=== PATIENT | female | born 1940 | race Caucasian/White ===

== ENCOUNTER 2016-02-24 15:25 | Inpatient (IN) | payer OTHER, MEDICAID, MEDICARE ==
--- NOTE | 2016-02-24 17:37 | ED Physician Chart ---
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 The episode was accompanied by associated substernal chest pain that radiated into the left arm. This episode occurred approximately one hour prior to admission and the chest pain is still present. The patient has had no similar episodes in the past. She rates the severity of the chest pain as a 6/10 and describes the character of the chest pain as a dull ache or pressure. She denies any relieving or exacerbating factors. The pain is also present in the LUE. There is no radiation to the jaw or back. The patient denies any associated respiratory distress, nausea, vomiting, cough, or diaphoresis. Patient has a prior history of hypertension and anxiety. The episode was accompanied by acute anxiety. Allergies:: Allergies Allergy/AdvReac Type Severity Reaction Status Date / Time No Known Allergies Allergy Verified 02/24/16 16:03 Vitals:: Vital Signs - 8 hr 02/24/16 16:05 Temp 97.9 F HR 72 RR 22 BP 164/83 O2 Sat % 98 Review of Systems - Review of Systems General/Constitutional: No fever, No chills, No diaphoresis, No edema, No loss of appetite Skin: No skin lesions, No rash Head: No headache, Light headed Eyes: No loss of vision, No diplopia ENT: No earache, No nasal drainage, No sore throat, No tinnitus Neck: No neck pain, No swelling, No stiffness, No mass noted Cardio Vascular: Chest pain, No palpitations, No PND, No edema Pulmonary: No SOB, No cough, No sputum, No wheezing, Other ( No hemoptysis.) GI: No nausea, No vomiting, No diarrhea, No pain, No hematemesis G/U: No dysuria, No frequency, No hematuria Corporate Communications Manager: No abnormal vaginal bleed Musculoskeletal: No back pain Psychiatric: Prior psych history, Anxiety, No suicidal ideation Hematopoietic: No bruising, No lymphadenopathy Neurological: No focal symptoms, No paresthesia, No headache, Dizziness, Vertigo , Other ( The patient describes being lightheaded and feeling like she may faint.) Past Medical History - Past Medical History Past Medical History: HTN, Other ( No history of heart disease, diabetes or elevated cholesterol. No history of prior DVT or pulmonary embolism.) Social History: Non Smoker, No Alcohol, Single Surgical History: None Psychiatricy History: Other ( Anxiety issues.) Family Medical History - Family Member Mother History Unknown: Yes Physical Exam - Physical Examination General/Constitutional: Awake ( in what way I should've told it was around the corner and I jars and you), Well-developed, well-nourished, Alert, GCS 15, Non- toxic appearing Other Gen/Cons comments:: Minimal distress secondary to complained of chest pain. Head: Atraumatic Eyes: Lids, conjuctiva normal, PERRL, EOMI Other Eyes comments:: No nystagmus present. Skin: No rash, No skin lesions, No ecchymosis, No lymphadenopathy ENMT: External ears, nose nl, Lips, teeth, gums nl, Oropharynx nl, Tonsils nl Neck: Nontender, No JVD, No nuchal rigidity, No bruit, No stridor Respiratory: Nl effort/Exclusion, Clear to Auscultation, No Wheeze/Rhonchi/Rales Cardio Vascular: RRR, No murmur, gallop, rubs, NL S1 S2 Other Cardio Vascular comments:: Patient has adequate pulses in all four extremities. GI: No tenderness/rebounding/guarding, No organomegaly, No hernia, Normal BS's, Nondistended, No mass/bruits, No McBurney tenderness Other GI comments:: Rectal examination was deferred at my discretion. : No CVA tenderness Extremities: No tenderness or effusion, Full ROM, normal strength in all extremities, No edema Other Extremities comments:: No calf tenderness and Lin's sign is negative. Neuro/Psych: Alert/oriented, Judgement/insight normal, No focal deficits Other Neuro/Psych comments:: Sensory examination was intact to light touch. The patient has normal strength in all four extremities consistent with her age and sex. The patient is able to ambulate with minimal assistance. Gait unremarkable. Normal finger-nose exam. Normal heal-alcaraz exam. Normal alternating hand movements. Labs/Radiology/EKG Results - Lab Results Results: Laboratory Tests 02/24/16 02/24/16 02/24/16 18:00 18:00 18:00 WBC 8.8 RBC 4.25 Hgb 14.3 Hct 42.0 MCV 98.7 MCH 33.5 H MCHC Differential 33.9 RDW 13.1 Plt Count 211 MPV 9.2 Neutrophils % 68.1 Lymphocytes % 23.3 Monocytes % 6.7 Eosinophils % 1.5 Basophils % 0.4 Sodium 138 Potassium 4.0 Chloride 109 H Carbon Dioxide 21.5 Anion Gap 11.5 BUN 23 Creatinine 0.8 Est GFR ( Amer) TNP Est GFR (Non-Af Amer) TNP BUN/Creatinine Ratio 28.8 Glucose 95 Calcium 9.4 Troponin I < 0.01 L B-Natriuretic Peptide Triglycerides Cholesterol LDL Cholesterol Direct HDL Cholesterol TSH 02/25/16 02/25/16 02/25/16 16:03 16:03 16:03 WBC RBC Hgb Hct MCV MCH MCHC Differential RDW Plt Count MPV Neutrophils % Lymphocytes % Monocytes % Eosinophils % Basophils % Sodium 140 Potassium 4.0 Chloride 109 H Carbon Dioxide 25.4 Anion Gap 9.6 BUN 24 Creatinine 1.2 Est GFR ( Amer) TNP Est GFR (Non-Af Amer) TNP BUN/Creatinine Ratio 20.0 Glucose 97 Calcium 9.3 Troponin I < 0.01 L B-Natriuretic Peptide 26.0 Triglycerides 204 H Cholesterol 155 LDL Cholesterol Direct 103 HDL Cholesterol 27 TSH 1.61 02/25/16 02/26/16 23:44 07:45 WBC RBC Hgb Hct MCV MCH MCHC Differential RDW Plt Count MPV Neutrophils % Lymphocytes % Monocytes % Eosinophils % Basophils % Sodium Potassium Chloride Carbon Dioxide Anion Gap BUN Creatinine Est GFR ( Amer) Est GFR (Non-Af Amer) BUN/Creatinine Ratio Glucose Calcium Troponin I < 0.01 L < 0.01 L B-Natriuretic Peptide Triglycerides Cholesterol LDL Cholesterol Direct HDL Cholesterol TSH Laboratory impression: the CBCs shows no evidence of leukocytosis or anemia. The troponin was within the normal range. Electrolytes were within the normal range except for a chloride of 109. Single view chest x-ray: no cardiomegaly. No mediastinal widening. No pneumothorax. No areas of pulmonary consolidation or infiltrate. Impression: no acute cardiopulmonary findings. - EKG Interpretations EKG Time:: 16:01 Rhythm: NSR RATE OF 65. Whittaker: Whittaker is normal Rate: 65 Comments:: No cue waves. No ST segment elevation or depression. Normal T waves. Normal NC interval. Normal QRS duration. Normal QT interval. Impression: no acute ischemic findings. Assessment - Assessment General Assessment: CASE SUMMARY: the 75-year-old female was brought in by EMS following an episode of dizziness accompanied by substernal chest pain. She rates the pain is a 6/10 severity and it radiates to the left upper extremity. The quality of the pain is a dull ache and she also uses the term pressure. She describes the dizziness as both mild vertigo and a feeling like she might faint. On physical examination the cardiopulmonary examination was unremarkable. There were no focal neurologiits. Chest x-ray was negative for any acute cardiopulmonary findings. The patient's electrocardiogram was normal with no ischemic findings. The patient symptoms were addressed was sublingual nitroglycerin which resulted in resolution of the chest pain. She was also treated with PO aspirin. The case was discussed with the panel physician and the patient will be admitted to a telemetry bed for further evaluation of possible ACS. MDM DDX FOR ACUTE CHEST PAIN AND NEAR SYNCOPE: NOT Aortic dissection based on the patient's history, examination and chest x-ray findings. NOT Pneumothorax based on a negative chest x-ray. NOT Pneumonia based on negative chest x-ray. LOW RISK for Pulmonary embolism based on Well's score of zero. CRITICAL CARE 45 MINUTES EXCLUDING ANY PROCEDURES. Treatment of Acute Chest pain with po aspirin and sublingual nitroglycerine. Resolution of pain. ED Septic Shock - . Is Septic Shock (SBP<90, OR Lactate>4 mmol\L) present?: No - <6hrs of presentation: Vital Signs: Vital Signs - 8 hr 02/24/16 16:05 Temp 97.9 F HR 72 RR 22 BP 164/83 O2 Sat % 98 Reassessment (Disposition) - Reassessment Reassessment Condition:: Improved - Diagnosis Diagnosis:: ACUTE CHEST PAIN (Rule out ACS), HYPERTENSION, ANXIETY - Aftercare/Follow up Instructions Aftercare/Follow-Up Instructions:: Counseled pt regarding lab results/diagnosis & need follow up - Patient Disposition Discharge/Transfer:: Acute Care w/in this hosp Accepting Physician:: DR. DICKENS ED Discharge Plan - Patient Disposition Admit/Discharge/Transfer: Acute Care w/in this hosp Condition at Disposition: Stable
[2016-02-24] MEDS ORDERED: Aspirin 81mg Chewable Tab PO ONE (17:42)
[2016-02-24] MEDS ORDERED: Aspirin 81mg Chewable Tab ONE (17:45)
[2016-02-24 18:22] LABS: % BASOPHILS 0.4 % (0.0-2.0); % EOSINOPHILS 1.5 % (0.0-5.0); % LYMPHOCYTES 23.3 % (20.0-50.0); % MONOCYTES 6.7 % (2.0-10.0); % NEUTROPHILS 68.1 % (40.0-80.0); HEMOGLOBIN 14.3 gm/dL (11.7-16.1); MEAN CELL VOLUME 98.7 fl (81-100); MEAN CORPUSCULAR HEMOGLOBIN 33.5 pg (27.0-31.0); MEAN CORPUSCULAR HGB CONC 33.9 pg (28.0-36.0); MEAN PLATELET VOLUME 9.2 fl; PLATELET COUNT 211 Th/cmm (150-400); RED BLOOD COUNT 4.25 Mil/cmm (3.80-5.20); RED CELL DISTRIBUTION WIDTH 13.1 % (11.5-20.0); WHITE BLOOD COUNT 8.8 Th/cmm (4.8-10.8)
[2016-02-24 19:19] LABS: ANION GAP 11.5 (7.0-16.0); BUN - UREA NITROGEN 23 mg/dL (7-25); BUN/CREATININE RATIO 28.8; CALCIUM SERUM 9.4 mg/dL (8.6-10.3); CARBON DIOXIDE 21.5 mEq/L (21.0-31.0); CHLORIDE 109 mEq/L (98-107); CREATININE - SERUM 0.8 mg/dL (0.6-1.2); GLUCOSE 95 mg/dL (70-105); SODIUM SERUM 138 mEq/L (136-145)
--- NOTE | 2016-02-25 10:22 | Diagnostic Imaging Report ---
CHEST X-RAY: AP view INDICATION: Chest pain and dizziness COMPARISON: None FINDINGS: Chronic lung changes are seen focal consolidation or pleural effusions. Heart size is normal. Tortuous aorta is noted. Degenerative changes of the spine are noted. IMPRESSION: Chronic lung changes with no focal consolidation identified. Tortuous aorta.
[2016-02-25 16:32] LABS: ANION GAP 9.6 (7.0-16.0); BUN - UREA NITROGEN 24 mg/dL (7-25); CALCIUM SERUM 9.3 mg/dL (8.6-10.3); CARBON DIOXIDE 25.4 mEq/L (21.0-31.0); CHLORIDE 109 mEq/L (98-107); CHOLESTEROL 155 mg/dL (<200); CREATININE - SERUM 1.2 mg/dL (0.6-1.2); GLUCOSE 97 mg/dL (70-105); SODIUM SERUM 140 mEq/L (136-145); TRIGLYCERIDES 204 mg/dL (<150)
[2016-02-25] MEDS: Aspirin 81mg Chewable Tab PO SCH (17:57)
--- NOTE | 2016-02-25 18:19 | History & Physical ---
HISTORY OF PRESENT ILLNESS: This is a 75-year-old female patient. The patient is complaining of dizziness and also complaining of chest discomfort, vertigo radiating to the left bottom, left bottom heaviness, and the patient was worked up and was admitted for rule out acute coronary syndrome, and the patient had no nausea, no vomiting, no diarrhea, and no other problem. PAST MEDICAL HISTORY: Unremarkable. History of hypertension. PHYSICAL EXAMINATION: GENERAL: Alert and oriented female. VITAL SIGNS: Stable. HEAD: Normal. ENT: Normal. NECK: Supple, nontender. LUNGS: Clear. CARDIOVASCULAR SYSTEM: S1, S2 heard. ABDOMEN: Soft. Bowel sounds are heard. CENTRAL NERVOUS SYSTEM: Grossly normal. DIAGNOSES: Acute chest pain, rule out acute coronary syndrome, and history of hypertension. The patient is being admitted. I will have cardiac workup done. I will have Dr. Camacho see the patient. I will follow the patient along with him. JOB# [id number]
[2016-02-26] MEDS: Aspirin 81mg Chewable Tab PO SCH (08:56)
--- NOTE | 2016-02-26 09:04 | General Progress Note ---
Objective - Results Result Diagrams: 02/24/16 18:00 02/25/16 16:03 Recent Labs: Laboratory Last Values WBC 8.8 Th/cmm (4.8-10.8) 02/24/16 18:00 RBC 4.25 Mil/cmm (3.80-5.20) 02/24/16 18:00 Hgb 14.3 gm/dL (11.7-16.1) 02/24/16 18:00 Hct 42.0 % (35.0-45.0) 02/24/16 18:00 MCV 98.7 fl (81-100) 02/24/16 18:00 MCH 33.5 pg (27.0-31.0) H 02/24/16 18:00 MCHC Differential 33.9 pg (28.0-36.0) 02/24/16 18:00 RDW 13.1 % (11.5-20.0) 02/24/16 18:00 Plt Count 211 Th/cmm (150-400) 02/24/16 18:00 MPV 9.2 fl 02/24/16 18:00 Neutrophils % 68.1 % (40.0-80.0) 02/24/16 18:00 Lymphocytes % 23.3 % (20.0-50.0) 02/24/16 18:00 Monocytes % 6.7 % (2.0-10.0) 02/24/16 18:00 Eosinophils % 1.5 % (0.0-5.0) 02/24/16 18:00 Basophils % 0.4 % (0.0-2.0) 02/24/16 18:00 Sodium 140 mEq/L (136-145) 02/25/16 16:03 Potassium 4.0 mEq/L (3.5-5.1) 02/25/16 16:03 Chloride 109 mEq/L (98-107) H 02/25/16 16:03 Carbon Dioxide 25.4 mEq/L (21.0-31.0) 02/25/16 16:03 Anion Gap 9.6 (7.0-16.0) 02/25/16 16:03 BUN 24 mg/dL (7-25) 02/25/16 16:03 Creatinine 1.2 mg/dL (0.6-1.2) 02/25/16 16:03 Est GFR ( Amer) TNP 02/25/16 16:03 Est GFR (Non-Af Amer) TNP 02/25/16 16:03 BUN/Creatinine Ratio 20.0 02/25/16 16:03 Glucose 97 mg/dL (70-105) 02/25/16 16:03 Calcium 9.3 mg/dL (8.6-10.3) 02/25/16 16:03 Troponin I < 0.01 ng/mL (0.01-0.05) L 02/26/16 07:45 B-Natriuretic Peptide 26.0 pg/mL (5.0-100.0) 02/25/16 16:03 Triglycerides 204 mg/dL (<150) H 02/25/16 16:03 Cholesterol 155 mg/dL (<200) 02/25/16 16:03 LDL Cholesterol Direct 103 mg/dL (75-193) 02/25/16 16:03 HDL Cholesterol 27 mg/dL (23-92) 02/25/16 16:03 TSH 1.61 uIU/ml (0.34-5.60) 02/25/16 16:03 - Physical Exam Vitals and I&O: Vital Signs Temp 97.2 F 02/26/16 04:00 Pulse 57 02/26/16 04:00 Resp 19 02/26/16 04:00 BP 103/58 02/26/16 04:00 Pulse Ox 95 02/26/16 04:00 Intake & Output 02/25/16 02/26/16 02/26/16 18:59 06:59 18:59 Intake Total 900 120 Balance 900 120 Intake: Oral 900 120 Other: # Voids 3 2 Active Medications: Current Medications Aspirin (Aspirin Chewable) 162 mg PO DAILY DEBBIE Stop: 04/25/16 15:41 Last Admin: 02/26/16 08:56 Dose: 162 mg Assessment/Plan - Problem List Patient Problems: All Active Problems DIZZINESS AND LEFT ARM HEAVINESS (Acute)
--- NOTE | 2016-02-26 15:14 | General Progress Note ---
Subjective - Review of Systems Service Date: 02/26/16 Subjective: awake, alert, nad Objective - Results Result Diagrams: 02/24/16 18:00 02/25/16 16:03 Recent Labs: Laboratory Last Values WBC 8.8 Th/cmm (4.8-10.8) 02/24/16 18:00 RBC 4.25 Mil/cmm (3.80-5.20) 02/24/16 18:00 Hgb 14.3 gm/dL (11.7-16.1) 02/24/16 18:00 Hct 42.0 % (35.0-45.0) 02/24/16 18:00 MCV 98.7 fl (81-100) 02/24/16 18:00 MCH 33.5 pg (27.0-31.0) H 02/24/16 18:00 MCHC Differential 33.9 pg (28.0-36.0) 02/24/16 18:00 RDW 13.1 % (11.5-20.0) 02/24/16 18:00 Plt Count 211 Th/cmm (150-400) 02/24/16 18:00 MPV 9.2 fl 02/24/16 18:00 Neutrophils % 68.1 % (40.0-80.0) 02/24/16 18:00 Lymphocytes % 23.3 % (20.0-50.0) 02/24/16 18:00 Monocytes % 6.7 % (2.0-10.0) 02/24/16 18:00 Eosinophils % 1.5 % (0.0-5.0) 02/24/16 18:00 Basophils % 0.4 % (0.0-2.0) 02/24/16 18:00 Sodium 140 mEq/L (136-145) 02/25/16 16:03 Potassium 4.0 mEq/L (3.5-5.1) 02/25/16 16:03 Chloride 109 mEq/L (98-107) H 02/25/16 16:03 Carbon Dioxide 25.4 mEq/L (21.0-31.0) 02/25/16 16:03 Anion Gap 9.6 (7.0-16.0) 02/25/16 16:03 BUN 24 mg/dL (7-25) 02/25/16 16:03 Creatinine 1.2 mg/dL (0.6-1.2) 02/25/16 16:03 Est GFR ( Amer) TNP 02/25/16 16:03 Est GFR (Non-Af Amer) TNP 02/25/16 16:03 BUN/Creatinine Ratio 20.0 02/25/16 16:03 Glucose 97 mg/dL (70-105) 02/25/16 16:03 Calcium 9.3 mg/dL (8.6-10.3) 02/25/16 16:03 Troponin I < 0.01 ng/mL (0.01-0.05) L 02/26/16 07:45 B-Natriuretic Peptide 26.0 pg/mL (5.0-100.0) 02/25/16 16:03 Triglycerides 204 mg/dL (<150) H 02/25/16 16:03 Cholesterol 155 mg/dL (<200) 02/25/16 16:03 LDL Cholesterol Direct 103 mg/dL (75-193) 02/25/16 16:03 HDL Cholesterol 27 mg/dL (23-92) 02/25/16 16:03 TSH 1.61 uIU/ml (0.34-5.60) 02/25/16 16:03 - Physical Exam Vitals and I&O: Vital Signs Temp 97.5 F 02/26/16 08:00 Pulse 55 02/26/16 08:00 Resp 17 02/26/16 08:00 BP 95/50 02/26/16 08:00 Pulse Ox 94 02/26/16 08:00 Intake & Output 02/25/16 02/26/16 02/26/16 18:59 06:59 18:59 Intake Total 900 120 Balance 900 120 Intake: Oral 900 120 Other: # Voids 3 2 Active Medications: Current Medications Aspirin (Aspirin Chewable) 162 mg PO DAILY DEBBIE Stop: 04/25/16 15:41 Last Admin: 02/26/16 08:56 Dose: 162 mg General: Alert, Cooperative HEENT: Atraumatic Neck: Supple Cardiovascular: Regular rate Lungs: Normal air movement Abdomen: Bowel sounds Assessment/Plan - Problem List Patient Problems: All Active Problems DIZZINESS AND LEFT ARM HEAVINESS (Acute) - Plan Plan: fall precautions ivf for hydration cbc/bmp in am
--- NOTE | 2016-02-26 19:54 | Cardiology ---
Patient of Dr. Fortune. M-MODE ECHOCARDIOGRAM: Mitral Valve: Anterior leaflet of the mitral valve shows normal excursion, EF velocity. Posterior leaflet of the mitral valve shows normal excursion. Left ventricular posterior wall shows increased thickness, normal excursion. Interventricular septum shows increased thickness, normal excursion, hypertrophy of the left ventricle, ejection fraction 75%. Left atrium enlarged 5.6 cm. Aortic root shows normal dimension, normal excursion of aortic leaflets. CONCLUSION: Hypertrophy of the left ventricle, left atrial enlargement, ejection fraction 75%. 2D ECHO: Long axis view showed normal-sized left ventricle with hypertrophy of the left ventricle. Left atrium enlarged. Aortic root shows normal dimension, normal excursion of aortic leaflets. Short axis view of mitral valve normal. Short axis view of aortic valve normal. Apical four-chamber view showed normal-sized left ventricle with hypertrophy of the left ventricle. Left atrium normal. Right ventricular cavity, right atrium normal. No pericardial effusion. CONCLUSION: Hypertrophy of the left ventricle, ejection fraction 75%, left atrial enlargement. Doppler study shows trace mitral regurgitation and tricuspid regurgitation, mild aortic regurgitation. Right ventricular systolic pressure 26 mmHg. JOB# [id number]
--- NOTE | 2016-02-27 21:30 | Consultation ---
The patient of Dr. Fortune. HISTORY AND PHYSICAL: This is a 75-year-old female patient who was brought to the Emergency Room complaining of chest pain. The patient has lot of anxiety. No history of PND or orthopnea. PAST MEDICAL HISTORY: The patient has a history of obesity, anxiety, and hypertension. FAMILY HISTORY: Unremarkable. SOCIAL HISTORY: No history of smoking or alcohol abuse. ALLERGIES: No known allergies. PHYSICAL EXAMINATION: VITAL SIGNS: Blood pressure 130/80, pulse 70, and respirations 20. HEAD: Normocephalic. No lumps or bumps. EYES: Pupils are equal and reactive to light. Fundi show AV nicking, sclerae white, and conjunctivae pink. NECK: Carotid 2+. Normal upstroke. JVD flat. Thyroid not palpable. Lymph nodes not palpable. CHEST: Shows increased AP diameter. No kyphosis or scoliosis. LUNGS: Bilateral bronchovesicular breath sounds. HEART: PMI fifth intercostal space with lateral to midclavicular line. S1, S2. No S3, S4. Systolic murmur, grade 2/6, lower left sternal border without radiation. ABDOMEN: Soft. Liver and spleen not palpable. No organomegaly. Bowel sounds are active. NEUROLOGIC: Unremarkable. EXTREMITIES: Peripheral pulses 2+. No pedal edema. CLINICAL IMPRESSION: Chest pain, unlikely coronary artery disease, severe anxiety, hypertension, and obesity. PLAN: The patient had an echocardiogram which showed hypertrophy of the left ventricle, trace mitral regurgitation, tricuspid regurgitation, and aortic regurgitation. The patient's clinically is stable. The patient can be discharged. [facility]# [id number]
--- NOTE | 2016-03-08 19:42 | Discharge Summary ---
The patient was initially admitted with chest pain, rule out acute coronary syndrome and history of hypertension. The patient had a cardiac workup done and I have Dr. Camacho see the patient. Stress test done which essentially was negative and the patient was in stable condition on 02/26/2016. The patient was discharged home and the patient was advised to follow up with her care ____ physician's office and if there is any problem call me. The patient's medications as before. The patient's condition on the day of discharge is stable. JOB# [id number]
== END 2016-02-26 17:10 | disposition home or self-care (01) | DRG 313 ==
LOC: ER 15:25 → TELE 18:13
PROVIDERS: ADMIT Internal Medicine; ATTEND Internal Medicine
DX: R07.89 Other chest pain (principal); I08.3 Combined rheumatic disorders of mitral, aortic and tricuspid valves; I10 Essential (primary) hypertension; F41.9 Anxiety disorder, unspecified; E66.9 Obesity, unspecified
CPT/HCPCS: 36415-UA; 71010-TC; 80048-TC; 80061-TC; 83880-TC; 84443-TC; 84484-TC; 85025-TC; 93005; Z7610